=== PATIENT | female | born 1955 | race Caucasian/White ===

== ENCOUNTER 2020-12-09 06:58 | Day surgery (SDC) | payer OTHER ==
[~2020-12-09] VITALS: Ht 162.6 cm; Wt 66.7 kg
[~2020-12-09 06:58] MED LIST: APIX5TAB PO; DRON400T PO; METO-158 PO
[2020-12-09] MEDS ORDERED: IODIXANOL 320MG/ML 100ML BTL IV ONE (07:44)
[2020-12-09] MEDS ORDERED: LIDOCAINE 2%HCL (LOCAL ANESTH.) INJ 20ML MDV ONE (07:44)
[2020-12-09] MEDS ORDERED: MIDAZOLAM HCL 2MG/2ML 2ml VIAL (1mg/ml) ONE (07:58)
[2020-12-09] MEDS ORDERED: HEPARIN SODIUM (PORCINE) 5000 UNITS/ML 1ML VIAL ONE (07:58)
[2020-12-09] MEDS ORDERED: ANGIOMAX 250 MG VIAL IV ONE (07:58)
[2020-12-09] MEDS ORDERED: fentaNYL CITRATE 100 MCG/2 ML VL ONE (07:58)
[2020-12-09] MEDS ORDERED: VERAPAMIL 2.5MG/ML INJ 2ML VIAL IV ONE (07:58)
[2020-12-09] MEDS ORDERED: SODIUM CHL 0.9% 0 ML ONE (07:59)
[2020-12-09] MEDS ORDERED: diphenhdrAMINE HCL 50 MG/1 ML VL ONE (08:27)
[2020-12-09] MEDS ORDERED: hydrALAZINE HCL 20 MG/ML VL ONE (08:48)
== END 2020-12-09 11:07 | disposition home or self-care (01) ==
LOC: CATH 06:58
PROVIDERS: ATTEND Internal Medicine Cardiovascular Disease
DX: I25.10 Atherosclerotic heart disease of native coronary artery without angina pectoris (principal); I48.91 Unspecified atrial fibrillation; Z20.822 Contact with and (suspected) exposure to COVID-19; Z98.890 Other specified postprocedural states; Z79.899 Other long term (current) drug therapy
CPT/HCPCS: 93458; C1887; C1894; J0360; J1200; J1644; J2250; J3010; Q9967; U0003; 99152